=== PATIENT | male | born 1995 | race African-American/Black ===

== ENCOUNTER 2023-05-30 07:55 | Emergency (ER) | payer SELFPAY ==
--- OUTSIDE RECORDS SUMMARY | 2023-05-30 07:58 | XMS REPORT | Continuity of Care Document ---
Author Name Unknown Address [address] [facility] [facility] Address [address] [facility] 1 495 [place] [address] Care Team Providers Care Bid Manager Name Role Phone RAYSA BAILEY Attending Clinician Un available Devante Still Attending Clinician Unavailable Josue Ahumada Attending Clinician Unavailable Cleo Zaragoza Attending Clinician Unavailabl e Physician, No Primary or Family Admitting Clinic jeremy Unavailable Payers Payer Name Policy Type Policy Number Effective Date Expirati on Date Source Allergies, Adverse Reactions, Alerts Allergy Name Allergy Type Status Severity Reaction(s) Onset Date Inactive Date Treating Clinician Comments Source No Known Allergie s DA Active U 03-11 00:00: 00 [facility] Encounters Start Date/Time End Date/Time Encounter Type Admission Type Attending Clinicians Care Facility Care Department Encounter ID Source 2023-05-09 22:12:00 2023-05-10 00:02:00 Emergency E RAYSA BAILEY [facility] [id number] [facility] 2023-03-23 21:12:00 2023-03-23 22:30:00 Emergency EM Devante Still [id number] [facility] 2023-03-18 15:38:00 2023-03-18 19:52:00 Emergency EM Josue Ahumada [id number] [facility] 2023-03-11 17:12:00 2023-03-11 21:02:00 Emergency EM Cleo Zaragoza HCAWU WERGuy [id number] [facility] Results Test Description Test Time Test Comments Results Result Co mments Source [id number] 20:30:00* Test Item Value Reference Range Interpretation Comme nts AMYLASE (test code = YANELIS) 80 UNITS/L 30-110 N - CT ABD PELVIS W/[id number] 19:16:00 [facility] 1995 Sex: M Patient Name: SHIRIN JOAQUIN Unit No: [id number] EXAMS: CPT CODE: [id number] CT ABD PELVIS W/CONT 65629 EXAM: - CT ABD PELVIS W/CONT HISTORY: Abdominal pain. Diarrhea. TECHNIQUE: Axial tomograms through the abdomen and pelvis were obtained after intravenous contrast. Coronal and sagittal reformatted images are provided. This exam was performed according to our departmental dose-op timization program, which includes automated exposure control, adjustment of the mA and/or kV according to patient size and/or use of iterative reconstruction technique. COMPARISON: None available time of interpretation. FINDINGS: The visualized lung bases are clear. The gallbladder is contracted. The liver, spleen, pancreas, adrenal glands and kidneys demonstrate no significant abnormalities. Nohydronephrosis. There is an appendicolith in mid position of the appendix. The distal appendix sizeis at the upper limits of normal. No significant inflammation. No evidence of perforation. The bowel is not distended. Questionable mild thickening of the wall in the transverse colon could be due tounderdistention. There is no adenopathy or free fluid. The abdominal aorta is normal in size. There is no acute osseous abnormality. IMPRESSION: No definite acute abnormality and other findings as above. at 1916 Reported and signed by:Curly Moctezuma MD CC: Megan Pabon MD Technologist: Burton Pavon RT ARRT CTDI: DLP: Trnscrpt: 03/11/2023 (1915) [facility] NAME: SHIRIN JOAQUIN [id number] [address] PHYS: Megan Vázquez MD : 1995 AGE: 28 SEX: [place] [address] LOC: [facility] PHONE #: EXAM DATE: 03/11/2023 STATUS: REG ER FAX #: RAD #: D/C DT PAGE 1 Signed ReportPatient Name: SHIRIN JOAQUIN Unit No: [id number] EXAMS: CPT CODE: [id number] CT ABD PELVIS W/CONT 65954 (Continued) Orig Print D/T: S: 03/11/2023 (1918) [facility] NAME: SHIRIN JOAQUIN [id number] [address] PHYS: Megan Vázquez MD : 1995 AGE: 28 SEX: [place] [address] LOC: [facility] PHONE #: EXAM DATE: 03/11/2023 STATUS: REG ER FAX#: RAD #: D/C DT PAGE 2 Signed Report Notes Date/Time Note Provider Source 2023-03-23 21:49:00 [id number]:49:00 [facility] ([facility])EMERGENCY PROVIDER REPORTREPORT#:[id number] REPORT STATUS: SignedDATE:03/23/23 TIME: 2148 PATIENT: SHIRIN JOAQUIN UNIT #: [id number]#: [id number] ROOM/BED:AGE: 28 SEX: M PCP PHYS: No Primary or Family PhysicianSERVICE DT: AUTHOR: Devante Still DO LOCATION: [facility] * ALL edits or amendments must be made on the electronic/computer document * HPI-Abd Pain M Under 40 Free Text HPI NotesFree Text HPI Dkupb40-[id number]-esu male here for generalized abdominal pain and burning sensation. Patient has visited us third time this month. See previous encounters which wasJan as well as March 18. Patient has had 2 CTs and 2 rounds of labs at that time was discharged with Bentyl, Reglan, Pepcid, Zofran. Patient states vomiting and diarrhea have improved but burning sensation is persistent. GeneralInitial Greet Date/Time 03/23/232113 PresentationChief Complaint Abdominal pain Risk-Abd Pain M Under 40)( Torsion Risk factors reviewed Review of Systems ROS StatementsAll systems rev neg except as marked. Past Medical History - AdultStated Complaint EPIGASTRIC PAIN X 1 WEEKAllergiesCoded Allergies:No Known Allergies (03/11/23) Home MedicationsActive ScriptsDICYCLOMINE (BENTYL) 20 MG PO QID PRN abdominal cramping DICYCLOMINE (BENTYL) 20 MG PO QID PRN abdominal cramping #30 TABS Prov: 03/11/23ONDANSETRON ODT (ZOFRAN ODT) 4 MG PO Q6H PRN PRN NAUSEA/VOMITING ONDANSETRON ODT (ZOFRAN ODT) 4 MG PO Q6H PRN PRN NAUSEA/VOMITING #15 TABS Prov: 03/11/23METOCLOPRAMIDE (REGLAN) 10 MG PO QID PRN PRN NAUSEA/VOMITING METOCLOPRAMIDE (REGLAN) 10 MG PO QID PRN PRN NAUSEA/VOMITING #20 TABS Prov: 03/11/23FAMOTIDINE (PEPCID) 20 MG PO BID PRN GERD/ burning abdominal pain FAMOTIDINE (PEPCID) 20 MG PO BID PRN GERD/ burning abdominal pain #60 TABS Prov: 03/11/23OMEPRAZOLE ER 20 MG PO DAILY OMEPRAZOLE ER 20 MG PO DAILY #30 CAPS Prov: 03/18/23MAG HYDROX/AL HYDROX/SIMETH (MAG-AL PLUS 200-200-20 MG/5ML) 10 ML PO TID PRN PRNheartburn MAG HYDROX/AL HYDROX/SIMETH (MAG-AL PLUS 200-200-20 MG/5ML) 10 ML PO TID PRN PRN heartburn #150 ML Prov: 03/18/23 Physical Exam Vital SignsReview of Vital Signs Reviewed Focused PEGeneral/Const General/Const Awake, AlertResp/Chest Respiratory/Chest AtraumaticCardiovascular Cardiovascular Heart rate NLAbdomen/GI Abdomen/GI Atraumatic, Soft, Non-tenderMS Back Back Atraumatic, Inspection NL Interpretation Diagnostics Lab Results InterpretationResultslabs normal again. cbc, chem 8. Lab StatementLaboratory studies reviewed and considered in the medical decision-making. Re-Evaluation MDM Free Text MDM NotesFree Text MDM Notesabdominal pain with 2 CT this month. will recheck labs. will not reimage . counselled regarding GI f/u. )( Re-Evaluation/Progress #1)( Re-Eval Status Improved Abd Pain MDM Note M < 40The patient is resting comfortably and feels better, is alert and in no distress. The repeat examination is unremarkable and benign; in particular, there is no discomfort [facility]. The history, exam, diagnostic testing, and current condition do not suggest acute appendicitis, bowel obstruction, incarcerated hernia, testicular torsion, acute cholecystitis, bowelperforation, major gastrointestinal bleeding, severe diverticulitis, sepsis, or other significant pathology to warrant further testing, continued ED treatment, admission, or surgical evaluation at this point. The vital signs have been stable and are within normal limits at this time. The patient does not have uncontrollable pain, intractable vomiting, or other significant symptoms. The patient's condition is stable and appropriate for discharge. The patient will pursue further outpatient evaluation with the primary care physician or other designated or consulting physician as indicated in the discharge instructions. ED CourseMedication(s) OrderedMedication(s) Ordered:Electrolytic, Caloric, And Donna Sig/Will Start time Last Medication Dose Route Stop Time Status Admin Sodium Chloride 1,000 ML X1ED STA 03/23 2138 DC 03/23 IV 03/23 Eye, Ear, Nose And Throat (Een Sig/Will Start time Last Medication Dose Route Stop Time Status Admin Lidocaine HCl 15 ML X1ED STA 03/23 2137 DC 03/23 Al Hydrox/Mg Hydrox/ 30 ML PO 03/23 Simethicone Gastrointestinal Drugs Sig/Will Start time Last Medication Dose Route Stop Time Status Admin Pantoprazole 40 MG X1ED STA 03/23 2138 DC 03/23 IV 03/23 Differential Diagnosis)( Differential Diagnosis Acute abdominal pain, Gastritis, Gastroenteritis, Pancreatitis Patient Discharge Departure Vital Signs/ConditionVital SignsAll vital signs available at the time of this entry have been reviewed. Clinical ImpressionClinical ImpressionPrimary Impression: GastritisSecondary Impressions: Abdominal painTime of Impression 2231 Disposition DecisionDischarge )( Discharged to Home Yes )( Time 2231 )( Date 03/23/23 Discharge/Care PlanCounseled Regarding Diagnosis, Lab results, Prescriptions, Need for follow-up, When to return to ED(Auto) PrescriptionsCurrent Visit ScriptsPANTOPRAZOLE DR (PROTONIX) 40 MG PO DAILY PANTOPRAZOLE DR (PROTONIX) 40 MG PO DAILY #30 TABS SUCRALFATE (CARAFATE) 1 GM PO AC HS SUCRALFATE (CARAFATE) 1 GM PO AC HS #120 TABS take before meals and at bedtime ONDANSETRON ODT (ZOFRAN ODT) 4 MG PO Q6H PRN PRN NAUSEA/VOMITING ONDANSETRON ODT (ZOFRAN ODT) 4 MG PO Q6H PRN PRN NAUSEA/VOMITING #15 TABS ReferralsProvider Referral: Husam Oneal MD Address: [address] [place] [address] Provider Referral: Micheal Flores DO Address: [id number] [place] [address] Provider Referral: Rudy Mixno MD Address: [address] [facility] [address] [place] [address] Provider Referral: Jasmin Goodson MD Address: [address] [facility] [address] [place] [address] Discharge NoteI have spoken with the patient and/or caregivers. I have explained the patient'scondition, diagnoses and treatment plan based on the information available to meat this time. I have answered the patient's and/or caregiver's questions and addressed any concerns. The patient and/or caregivers have as good an understanding of the patient's diagnosis, condition and treatment plan as can beexpected at this point. The vital signs have been stable. The patient's condition is stable and appropriate for discharge from the emergency department. The patient will pursue further outpatient evaluation with the primary care physician or other designated or consulting physician as outlined in the discharge instructions. The patient and/or caregivers are agreeable to this planof care and follow-up instructions have been explained in detail. The patient and/or caregivers have received these instructions in written format and have expressed an understanding of the discharge instructions. The patient and/or caregivers are aware that any significant change in condition or worsening of symptoms should prompt an immediate return to this or the closest emergency department or a call to 911. at 2236RPT #:[id number] OF REPORTEDEmerbaptist health [facility] department [id number]:49:00Z.[id number] ilable for patient [id number]:36:39 [facility] 2023-03-18 17:57:00 [id number]:57:00 [facility] ([facility])EMERGENCY PROVIDER REPORTREPORT#:[id number] REPORT STATUS: SignedDATE:03/18/23 TIME: 1756 PATIENT: SHIRIN JOAQUIN UNIT #: [id number]#: [id number] ROOM/BED:AGE: 28 SEX: M PCP PHYS: No Primary or Family PhysicianSERVICE AUTHOR: Shirin Hunt MD LOCATION: [facility] * ALL edits or amendments must be made on the electronic/computer document * Shirin Hunt 03/18/231756:HPI-Abd Pain M Under 40 [facility]In[facility] Greet Date/Time 03/18/23 1552 PresentationChief Complaint Abdominal pain Free Text HPI NotesFree Text HPI NotesPatient 28-year-old male, no significant past medical history, exercises frequently, presents with upper abdominal plain. Patient was seen here approximately 1 week ago and had a CT scan that was negative, diagnosed with gastritis, and discharged home. On review of CT scan, patient had appendicolithat that time. Patient said he had nausea vomiting and diarrhea the week prior to the pain starting, so thought he had picked up some type of gastric bug. Patient says pain is not going away, it is getting worse, and wanted to get checked again. Risk-Abd Pain M Under 40)( Torsion No risk factors Review of Systems ROS StatementsAll systems rev neg except as marked. Focused Review of SystemsGIReports: Abdominal pain, Nausea. Denies: Bloody/tarry stool, Constipation, Hematemesis, Mucousy stool. Past Medical History - AdultStated Complaint ABDOMINAL PAINAllergiesCoded Allergies:No Known Allergies (03/11/23) Home MedicationsActive ScriptsDICYCLOMINE (BENTYL) 20 MG PO QID PRN abdominal cramping DICYCLOMINE (BENTYL) 20 MG PO QID PRN abdominal cramping #30 TABS Prov: 03/11/23ONDANSETRON ODT (ZOFRAN ODT) 4 MG PO Q6H PRN PRN NAUSEA/VOMITING ONDANSETRON ODT (ZOFRAN ODT) 4 MG PO Q6H PRN PRN NAUSEA/VOMITING #15 TABS Prov: 03/11/23METOCLOPRAMIDE (REGLAN) 10 MG PO QID PRN PRN NAUSEA/VOMITING METOCLOPRAMIDE (REGLAN) 10 MG PO QID PRN PRN NAUSEA/VOMITING #20 TABS Prov: 03/11/23FAMOTIDINE (PEPCID) 20 MG PO BID PRN GERD/ burning abdominal pain FAMOTIDINE (PEPCID) 20 MG PO BID PRN GERD/ burning abdominal pain #60 TABS Prov: 03/11/23 Calculated Suicide Risk (nurs) No riskPt reports no significant: Past medical history, Past surgical historySmoking status for patients 13 years old or older: Never Smoker Physical Exam Vital SignsReview of Vital Signs Reviewed Free Text PE NotesFree Text PE NotesGENERAL APPEARANCE: AxOx4, generally well-appearing 28-year-old maleHEENT: NC, AT. MMM. EOMI, clear conjunctiva, oropharynx clear.NECK: Supple without lymphadenopathy. No stiffness or restricted ROM.HEART: Normal rate and regular rhythm, normal S1/S1, no m/r/gLUNGS: CTAB, moving air well. No crackles or wheezes are heard.ABDOMEN: Soft, tender in bilateral upper quadrants and left quadrant, nondistended with good bowel sounds heard.BACK: No CVAT, no obvious deformity.EXTREMITIES: Without cyanosis, clubbing or edema.NEUROLOGICAL: Grossly nonfocal. Alert and oriented, moving all 4 extremities. CN not formally tested but appear grossly intact. Observed to ambulate with normal gait.Skin: Warm and dry without any rash. Interpretation Diagnostics Lab Results InterpretationConsiderations Reviewed prior records Re-Evaluation MDM Free Text MDM NotesFree Text MDM NotesPatient has trace leuks in his urine, CBC shows a white count of 7, hemoglobin 14, platelets 282. Patient has normal electrolytes with a sodium 139 potassium 3.8 and creatinine 1.1 with a BUN of 15. Glucose is 100. Patient has normal LFTs, he has slight elevation in his amylase at 105. )( Re-Evaluation/Progress #1Time of Re-Eval 1811)( Re-Eval Status Improved ED CourseMedication(s) OrderedMedication(s) Ordered:Autonomic Drugs Sig/Will Start time Last Medication Dose Route Stop Time Status Admin Dicyclomine HCl 20 MG X1ED STA 03/18 1604 DC 03/18 PO 03/18 1605 1751 Electrolytic, Caloric, And Donna Sig/Will Start time Last Medication Dose Route Stop Time Status Admin Sodium Chloride 1,000 ML X1ED ONE 03/18 1605 DC 03/18 IV 03/18 1705 1743 Eye, Ear, Nose And Throat (Een Sig/Will Start time Last Medication Dose Route Stop Time Status Admin Lidocaine HCl 15 ML X1ED STA 03/18 1604 DC 03/18 Al Hydrox/Mg Hydrox/ 30 ML PO 03/18 1605 1744 Simethicone Gastrointestinal Drugs Sig/Will Start time Last Medication Dose Route Stop Time Status Admin Famotidine 20 MG X1ED ONE 03/18 1605 DC 03/18 IV 03/18 1606 1745 Differential Diagnosis)( Differential Diagnosis Appendicitis, Constipation, Esophagitis, Gastritis, Gastroenteritis, Pancreatitis MDM-Treatment/EvaluationED CoursePatient with mild elevation of lipase, has prior appendicolith on my review of prior CT, given recurrent pain will CT, looks for changes in pancreas and also r/o atypical appnedicitis. CHEYENNE Sarmiento who assumes care Patient Discharge Departure Discharge/Care PlanReferralsProvider Referral: Cameron Hogan MD Address: [address] [facility] [facility] [address] [place] [address] Provider Referral: Lilly Lerma NP Address: [address] [facility] [place] [address] Provider Referral: Jasmin Goodson MD Address: [address] [place] [address] [address] [place] [address] Josue Ahumada 03/18/231939:Physical Exam Vital SignsVital SignsFirst Documented: Result Date Time Pulse Ox 95 03/18 1554 B/P 153/92 03/18 1554 B/P Mean 112 03/18 1554 Temp 36.3 03/18 1554 Pulse 60 03/18 1554 Resp 18 03/18 1554 Last Documented: Result Date Time Pulse Ox 98 03/18 1949 B/P 124/74 03/18 1949 B/P Mean 90 03/18 1949 Temp 37.1 03/18 1949 Pulse 54 03/18 1949 Resp 03/18 Interpretation Diagnostics Lab Results InterpretationResultsRecent Impressions:CAT SCAN - CT ABD PELVIS W/CONT 03/18 1839 Report Impression - Status: SIGNED Entered: 03/18/20231921 IMPRESSION: 1. The appendix is upper limit of normal in diameter. Anappendicolith is not redemonstrated. No periappendiceal fat strandingis detected to suggest acute appendicitis.2. No acute abdominal finding. LOCATION: [id number] By: Greg Pruitt M.D. Re-Evaluation [facility] )( Re-Evaluation/Progress #1Time of Re-Eval 1939)( Re-Eval Status ImprovedRe-Eval Abdomen Soft, Non-tender Patient Discharge Departure Vital Signs/ConditionVital SignsFirst Documented: Result Date Time Pulse Ox 95 03/18 1554 B/P 153/92 03/18 1554 B/P Mean 112 03/18 1554 Temp 36.3 03/18 1554 Pulse 60 03/18 1554 Resp 18 03/18 1554 Last Documented: Result Date Time Pulse Ox 98 03/18 1950 B/P 124/74 03/18 1950 B/P Mean 90 03/18 1949 Temp 37.1 03/18 1949 Pulse 54 03/18 1949 Resp 18 03/18 1949 All vital signs available at the time of this entry have been reviewed. Condition Stable, Improved Clinical ImpressionClinical ImpressionPrimary Impression: Acute abdominal painSecondary Impressions: Epigastric pain, Gastritis Disposition DecisionDischarge )( Discharged to Home Yes )( Time 194 )( Date 03/18/23 Discharge/Care PlanCounseled Regarding Diagnosis, Lab results, Imaging studies, Prescriptions, Needfor follow-up, When to return to ED(Auto) PrescriptionsCurrent Visit ScriptsOMEPRAZOLE ER 20 MG PO DAILY OMEPRAZOLE ER 20 MG PO DAILY #30 CAPS MAG HYDROX/AL HYDROX/SIMETH (MAG-AL PLUS 200-200-20 MG/5ML) 10 ML PO TID PRN PRNheartburn MAG HYDROX/AL HYDROX/SIMETH (MAG-AL PLUS 200-200-20 MG/5ML) 10 ML PO TID PRN PRN heartburn #150 ML Patient Instructions ED Epigastric Pain Uncertain Cause at 0336 at 0942RPT #:[id number] OF REPORTEDEmergency department vzljkh0829-08-05Y20:57:00Z.[id number] ilable for patient [id number]:36:21 [facility] 2023-03-11 17:30:00 [id number]:30:00 [facility] ([facility])EMERGENCY PROVIDER REPORTREPORT#:[id number] REPORT STATUS: SignedDATE:03/11/23 TIME: 1729 PATIENT: SHIRIN JOAQUIN UNIT #: [id number]#: [id number] ROOM/BED:AGE: 28 SEX: M PCP PHYS: No Primary or Family PhysicianSERVICE AUTHOR: Megan Pabon MD LOCATION: [facility] * ALL edits or amendments must be made on the electronic/computer document * Megan Pabon 03/11/23 1730:HPI-Abd Pain M Under 40 Free Text HPI NotesFree Text HPI NotesPatient is 28 years old healthy male presents complaining of abdominal pain associated with nausea/vomiting and diarrhea onset 6 days. Reports several episodes of diarrhea and vomiting in the first 2 days, felt better however symptoms have not resolved, reports 3 episodes of watery stools and 2 emesis since yesterday, denies fever. GeneralInitial Greet Date/Time 03/11/23 1720 PresentationChief Complaint Abdominal pain, Vomiting mild, Diarrhea Risk-Abd Pain M Under 40)( Torsion Risk factors reviewed Review of Systems ROS StatementsAll systems rev neg except as marked. Basic Review of SystemsBasic ROS EYES: No redness, ENT: No sore throat, HEM: No bleeding/bruising, SKIN: No rash, NEURO: No change MS, NEURO: No focal deficit, PSYCH: NL thought content Focused Review of SystemsConstitutionalReports: Fatigue. Denies: Chills, Fever. RespiratoryDenies: Cough, non-productive, Shortness of breath, Wheezing. CardiovascularDenies: Chest pain, Syncope. GIReports: Abdominal pain, Anorexia, Diarrhea, Nausea, Vomiting. MaleDenies: Dysuria, Flank pain, Urinary urgency. MusculoskeletalReports: Myalgia. Past Medical History - AdultStated Complaint ABDOMINAL PAIN,DIARRHEAAllergiesCoded Allergies:No Known Allergies (03/11/23) Physical Exam Vital SignsVital SignsFirst Documented: Result Date Time Pulse Ox 98 03/11 171 B/P 119/84 03/11 1714 B/P Mean 95 03/11 1714 O2 Delivery Room air 03/11 1714 Temp 36.7 03/11 1714 Pulse 74 03/11 171 Resp 18 03/11 1714 Last Documented: Result Date Time Pulse Ox 98 03/11 2101 B/P 111/67 03/11 2101 B/P Mean 81 03/11 2101 Pulse 62 03/11 2101 Resp 17 03/11 2101 O2 Delivery Room air 03/11 1714 Temp 36.7 03/11 1714 Review of Vital Signs Reviewed, Vital signs normal Basic Physical ExamBasic PE HEAD: Atraumatic/NC, EYES: PERRL, conj clear, ENT: Membranes moist, NECK: Supple, EXT: No gross abnormality, SKIN: No rashes, warm/dry, NEURO: alert oriented, NEURO: gross movement NL, PSYCH: NL thought content Focused PEGeneral/Const General/Const Awake, Alert, No acute distressMS Head Head Atraumatic, NormocephalicEyes Eyes Atraumatic, PERRL, No scleral icterus, Conjunctiva NLEars/Nose/Throat Ears/Nose/Throat Atraumatic, Airway patent, Mucous membranes moist, Pharynx NLResp/Chest Respiratory/Chest Atraumatic, Breath sounds NL, Breath sounds = bilatCardiovascular Cardiovascular Heart rate NL, Regular rhythm, Heart sounds NLAbdomen/GI Abdomen/GI Atraumatic, Soft, No guarding, No rebound Text/Dict NotesGeneralized abdominal tenderness, no guardingMS Back Back Atraumatic, Inspection NL, Full range of motionSkin Skin Atraumatic, Color NL, No rashNeurologic Neurologic Oriented X3, Speech NL, No motor deficits, No sensory deficits, CNII - XII intact, Reflexes equal bilat Interpretation Diagnostics Lab Results Interpretation Lab StatementLaboratory studies reviewed and considered in the medical decision-making. Re-Evaluation MDM Free Text MDM NotesAdditional Text28 years old male presents with persistent abdominal pain nausea/vomiting and diarrhea. generalized abdominal tenderness on exam. Will check labs, give IV fluids, and obtain CT abdomen pelvis for acute intra-abdominal pathology. Differential Diagnosis)( Differential Diagnosis Acute abdominal pain, Cholangitis, Cholecystitis, Cholelithiasis, Gastritis, Gastroenteritis, Hepatitis, Inflam bowel disease, Urinary tract infection, Urolithiasis Patient Discharge Departure Vital Signs/ConditionVital SignsFirst Documented: Result Date Time Pulse Ox 98 03/11 1714 B/P 119/84 03/11 1714 B/P Mean 95 03/11 1714 O2 Delivery Room air 03/11 1714 Temp 36.7 03/11 1714 Pulse 74 03/11 1714 Resp 18 03/11 1714 Last Documented: Result Date Time Pulse Ox 98 03/11 2101 B/P 111/67 03/11 2101 B/P Mean 81 03/11 2101 Pulse 62 03/11 2101 Resp 17 03/11 2101 O2 Delivery Room air 03/11 1714 Temp 36.7 03/11 1714 All vital signs available at the time of this entry have been reviewed. Pt/Provider Handoff Handoff NoteThis patient's care has been transferred to and accepted by [Dr Juarez at 1800]. We discussed: the patient's chief complaint; labs and imaging that have been completed and those that are still pending; procedures that have been completed and those remaining to be done; any treatment provided and the patient's response to treatment; any significant change in condition; input from consultants if any; the treatment plan prior to the transfer of care. The accepting physician will follow up on all pending labs and imaging and make any necessary changes to the current impression and/or treatment plan. The acceptingphysician is now responsible for the patient's care and final disposition. Cleo Zaragoza 03/11/231923:Past Medical History - AdultHome MedicationsActive ScriptsOMEPRAZOLE ER 20 MG PO DAILY OMEPRAZOLE ER 20 MG PO DAILY #30 CAPS Prov: 03/18/23MAG HYDROX/AL HYDROX/SIMETH (MAG-AL PLUS 200-200-20 MG/5ML) 10 ML PO TID PRN PRNheartburn MAG HYDROX/AL HYDROX/SIMETH (MAG-AL PLUS 200-200-20 MG/5ML) 10 ML PO TID PRN PRN heartburn #150 ML Prov: 03/18/23 Interpretation Diagnostics Lab Results InterpretationResultsLaboratory Tests: 03/11 1812 Chemistry Total Bilirubin (0.2 - 1.3 MG/DL) 0.9 Direct Bilirubin (0.0 - 0.3 MG/DL) 0.0 AST (17 - 59 UNITS/L) 32 ALT (0 - 49 UNITS/L) 39 Total Alk Phosphatase (38 - 126 UNITS/L) 79 Total Protein (6.2 - 7.6 G/DL) 7.6 Albumin (3.5 - 5.0 G/DL) 4.4 Amylase (30 - 110 UNITS/L) 80 Recent Impressions:CAT SCAN - CT ABD PELVIS W/CONT 03/11 1839 Report Impression - Status: SIGNED Entered: 03/11/20231918 IMPRESSION: No definite acute abnormality and other findings as above.Impression By: [email or web address] - Curly Moctezuma MD Re-Evaluation MDM )( Re-Evaluation/Progress #1Time of Re-Eval 2040)( Re-Eval Status Improved, Resolved, - passed po - ready to go ED CourseMedication(s) OrderedMedication(s) Ordered:Autonomic Drugs Sig/Will Start time Last Medication Dose Route Stop Time Status Admin Dicyclomine HCl 20 MG ONCE ONE 03/11 1944 DC 03/11 PO 03/11 Central Nervous System Agents Sig/Will Start time Last Medication Dose Route Stop Time Status Admin Ketorolac 15 MG X1ED STA 03/11 1809 DC 03/11 Tromethamine IV 03/11 1810 1823 Electrolytic, Caloric, And Donna Sig/Will Start time Last Medication Dose Route Stop Time Status Admin Sodium Chloride 1,000 ML X1ED ONE 03/11 1735 DC 03/11 IV 03/11 1835 1804 Eye, Ear, Nose And Throat (Een Sig/Will Start time Last Medication Dose Route Stop Time Status Admin Lidocaine HCl 15 ML X1ED STA 03/11 194 DC 03/11 Al Hydrox/Mg Hydrox/ 30 ML PO 03/11 1943 2015 Simethicone Gastrointestinal Drugs Sig/Will Start time Last Medication Dose Route Stop Time Status Admin Famotidine 40 MG X1ED STA 03/11 194 DC 03/11 IV 03/11 [facility]-Treatment/EvaluationED Nhilfn0126- assumed care 1923- all results back- updated- will po challenge Patient Discharge Departure Clinical ImpressionClinical ImpressionPrimary Impression: Acute gastroenteritisSecondary Impressions: Abdominal cramping, Acute diarrhea, Acute generalized abdominal pain, Acute vomiting, Moderate dehydration Disposition DecisionDischarge )( Discharged to Home Yes )( Time 2041 )( Date 03/11/23 Discharge/Care Plan(Auto) PrescriptionsCurrent Visit ScriptsDICYCLOMINE (BENTYL) 20 MG PO QID PRN abdominal cramping DICYCLOMINE (BENTYL) 20 MG PO QID PRN abdominal cramping #30 TABS ONDANSETRON ODT (ZOFRAN ODT) 4 MG PO Q6H PRN PRN NAUSEA/VOMITING ONDANSETRON ODT (ZOFRAN ODT) 4 MG PO Q6H PRN PRN NAUSEA/VOMITING #15 TABS METOCLOPRAMIDE (REGLAN) 10 MG PO QID PRN PRN NAUSEA/VOMITING METOCLOPRAMIDE (REGLAN) 10 MG PO QID PRN PRN NAUSEA/VOMITING #20 TABS FAMOTIDINE (PEPCID) 20 MG PO BID PRN GERD/ burning abdominal pain FAMOTIDINE (PEPCID) 20 MG PO BID PRN GERD/ burning abdominal pain #60 TABS Patient Instructions ED Abdominal Pain Adult, ED Gastroenteritis, Noninfectious,Vomit Diarrhea Nonspecific AdultAdditional InstructionsEat a bland diet until your symptoms resolve. Use the prescribed medications asneeded for symptom control. Make sure that you are drinking plenty of fluids toremain hydrated.ReferralsProvider Referral: Husam nOeal MD Address: [address] [facility] [address] [place] [address] Provider Referral: Micheal Flores DO Address: [address] [place] [address] [address] [place] [address] Provider Referral: Amber Arboleda AGACNP Address: [address] [facility] [address] [place] [address] Provider Referral: Rudy Mixon MD Address: [address] [facility] [address] [place] [address] at 2221 at 1709RPT #:[id number] OF REPORTEDEmergency department tojsnb2281-61-84C73:30:00Z.[id number] ilable for patient ztumVKDFBKRDJGLJSM2513-40-56U53:21:44 [facility]
[2023-05-30] MEDS ORDERED: predniSONE 20 MG TAB ONE (08:45)
[2023-05-30] MEDS ORDERED: ALBUTEROL 2.5 MG/3 ML NEB SOL ONE ×2 (08:45→10:10)
[2023-05-30] MEDS ORDERED: IPRATROPIUM BROM 0.5MG/2.5ML ONE ×2 (08:45→10:10)
--- NOTE | 2023-05-30 09:22 | RAD REPORT ---
EXAM DESCRIPTION: RAD - Chest Single View - 05/30/2023 8:54 am CLINICAL HISTORY: COUGH Chest pain. COMPARISON: No comparisons FINDINGS: Portable technique limits examination quality. The lungs are grossly clear. The heart is normal in size. No displaced fractures. IMPRESSION: No acute intrathoracic process suspected.
--- NOTE | 2023-05-30 09:48 | RAD REPORT ---
EXAM DESCRIPTION: US - Scrotum Testicles - 05/30/2023 9:21 am CLINICAL HISTORY: PAIN Pain and swelling COMPARISON: <Comparisons> FINDINGS: The right testicle 4.5 x 2.3 x 3.0 cm. No intratesticular masses or evidence of testicular torsion. The left testicle 4.4 x 2.6 x 3.0 cm. No intratesticular masses or evidence of testicular torsion. Both epididymides are normal in size and appearance. No pathologic fluid collections. IMPRESSION: Unremarkable study.
--- NOTE | 2023-05-30 11:03 | ER ---
Nurse's Notes [facility] Name: Vijay Mcgregor Age: 28 yrs Sex: Male : 1995 Arrival Date: 05/30/2023 Time: 07:55 Bed 15 Private MD: Diagnosis: Unspecified asthma, uncomplicated;Testicular pain Presentation: 05/29 08:28 Chief complaint: Patient states: h/a, cough, congestion, fever chills, had flu and URI iw infection last week, also tripped over a hose last night and has right groin pain. 08:28 Acuity: SHARIF 4 iw 08:29 Coronavirus screen: Client presents with at least one sign or symptom that may indicate iw coronavirus-19. Ebola Screen: Patient negative for fever greater than or equal to 101.5 degrees Fahrenheit, and additional compatible Ebola Virus Disease symptoms Patient denies exposure to infectious person. Patient denies travel to an Ebola-affected area in the 21 days before illness onset. No symptoms or risks identified at this time. Initial Sepsis Screen: Does the patient meet any 2 criteria? No. Patient's initial sepsis screen is negative. Does the patient have a suspected source of infection? No. Patient's initial sepsis screen is negative. Risk Assessment: Do you want to hurt yourself or someone else? Patient reports no desire to harm self or others. Onset of symptoms was May 28, 2023. 08:29 Method Of Arrival: Ambulatory iw Historical: - Allergies: 08:30 No Known Allergies; iw - Home Meds: 08:30 None [Active]; iw - PMHx: 08:30 None; iw - PSHx: 08:30 None; iw - Family history:: not pertinent. Screenin:03 [facility] ED Fall Risk Assessment (Adult) Score/Fall Risk Level 0 - 2 = Low Risk. Abuse iw screen: Denies threats or abuse. Denies injuries from another. Nutritional screening: No deficits noted. Tuberculosis screening: No symptoms or risk factors identified. Assessment: 08:28 General: Appears in no apparent distress. Behavior is calm, cooperative. Pain: iw Complains of pain in right femoral area. Neuro: Level of Consciousness is awake, alert, obeys commands, Oriented to person, place, time, situation, Moves all extremities. Full function. Cardiovascular: Patient's skin is warm and dry. Respiratory: Respiratory effort is even, unlabored, Respiratory pattern is regular, symmetrical. GI: Abdomen is flat, non-distended. Derm: Skin is intact, is healthy with good turgor. Musculoskeletal: Range of motion:. Vital Signs: 08:30 BP 112 / 74; Pulse 81; Resp 16; Temp 98; Pulse Ox 100% ; Weight 83.91 kg; Height 5 ft. iw 7 in. ; Pain 8/10; 08:30 Body Mass Index 28.97 (83.91 kg, 170.18 cm) iw 08:30 Pain Scale: Adult iw ED Course: 07:59 Patient arrived in ED. mr 08:26 Husam Naqvi MD is Attending Physician. rt 08:28 Angie Em RN is Primary Nurse. iw 08:29 Triage completed. iw 08:30 Arm band placed on. iw 08:56 Chest Single View XRAY In Process Unspecified. EDMS 09:03 No provider procedures requiring assistance completed. iw 09:22 Scrotum Testicles US In Process Unspecified. EDMS Administered Medications: 09:33 Drug: predniSONE PO 40 mg PO once Route: PO; iw 09:33 Drug: DuoNeb Nebulize (3:1) (2.5 mg - 0.5 mg) 3 ml Nebulizer once Route: Nebulizer; iw 10:16 Drug: DuoNeb Nebulize (3:1) (2.5 mg - 0.5 mg) 3 ml Nebulizer once Route: Nebulizer; iw Medication: 09:03 VIS not applicable for this client. iw Outcome: 11:03 Discharge ordered by . rt 11:25 Patient left the ED. iw Signatures: Dispatcher [employer] EDMS Rachael Barney, Reg Reg Angie Em, RN RN iw Husam Naqvi MD MD rt Corrections: (The following items were deleted from the chart) 09:33 08:30 BP 112 / 74; Pulse 81bpm; Resp 16bpm; Pulse Ox 100%; 83.91 kg; Height 5 ft. 7 iw in.; BMI: 28.9; Pain 8/10, Adult; iw
--- NOTE | 2023-05-30 11:04 | EDPHYS ---
Physician Documentation [facility] Name: Vijay Mcgregor Age: 28 yrs Sex: Male : 1995 Arrival Date: 05/30/2023 Time: 07:55 Bed 15 Private MD: ED Physician Husam Naqvi HPI: 05/29 08:46 This 28 yrs old Black Male presents to ER via Ambulatory with complaints of Groin rt Injury, Congestion, Shortness Of Breath. 08:46 Patient presents to the ED with right testicular pain. It started yesterday, was rt initially sharp, more intense, slowly improved throughout the day, now only has a dull pain. Denies any swelling to the area, abnormal lie, penile discharge. He also reports having shortness of breath, wheezing consistent with prior episodes of asthma. Denies other acute complaints at this time, symptoms are moderate in severity, no other aggravating or alleviating factors.. Historical: - Allergies: 08:30 No Known Allergies; iw - Home Meds: 08:30 None [Active]; iw - PMHx: 08:30 None; iw - PSHx: 08:30 None; iw - Family history:: not pertinent. ROS: 08:46 Constitutional: Negative for fever, chills, and weight loss, Cardiovascular: Negative rt for chest pain, palpitations, and edema, Abdomen/GI: Negative for abdominal pain, nausea, vomiting, diarrhea, and constipation, MS/Extremity: Negative for injury and deformity, Skin: Negative for injury, rash, and discoloration, Neuro: Negative for headache, weakness, numbness, tingling, and seizure, 08:46 Cardiovascular: Positive for 08:46 Respiratory: Positive for cough, shortness of breath, wheezing, Negative for 08:46 : Positive for testicular pain Negative for burning with urination, Exam: 08:46 Constitutional: This is a well developed, well nourished patient who is awake, alert, rt and in no acute distress. Head/Face: Normocephalic, atraumatic. Chest/axilla: Normal chest wall appearance and motion. Nontender with no deformity. No lesions are appreciated. Cardiovascular: Regular rate and rhythm with a normal S1 and S2. No gallops, murmurs, or rubs. Normal PMI, no JVD. No pulse deficits. Abdomen/GI: Soft, non-tender, with normal bowel sounds. No distension or tympany. No guarding or rebound. No evidence of tenderness throughout. Skin: Warm, dry with normal turgor. Normal color with no rashes, no lesions, and no evidence of cellulitis. MS/ Extremity: Pulses equal, no cyanosis. Neurovascular intact. Full, normal range of motion. Neuro: Awake and alert, GCS 15, oriented to person, place, time, and situation. Cranial nerves II-XII grossly intact. Motor strength 5/5 in all extremities. Sensory grossly intact. Cerebellar exam normal. Normal gait. 08:46 Respiratory: Faint wheezes heard on all lung huitron, no respiratory distress, 08:46 : No penile discharge, no testicular tenderness, palpable hernia, no masses, swelling, testicles normal lie, Vital Signs: 08:30 BP 112 / 74; Pulse 81; Resp 16; Temp 98; Pulse Ox 100% ; Weight 83.91 kg; Height 5 ft. iw 7 in. ; Pain 8/10; 08:30 Body Mass Index 28.97 (83.91 kg, 170.18 cm) iw 08:30 Pain Scale: Adult iw MDM: 08:27 Patient medically screened. rt 12:11 Differential diagnosis: Testicular torsion, epididymitis, asthma exacerbation, rt pneumonia. Data reviewed: vital signs, nurses notes, lab test result(s), EKG, radiologic studies. Independent interpretation of the following test(s) in the Emergency Department X-Ray: My interpretation is No pneumonia seen on interpretation of x-ray images. Care significantly affected by the following chronic conditions: Asthma. Counseling: I had a detailed discussion with the patient and/or guardian regarding the historical points, exam findings, and any diagnostic results supporting the discharge/admit diagnosis, lab results, radiology results, the need for outpatient follow up, to return to the emergency department if symptoms worsen or persist or if there are any questions or concerns that arise at home. Response to treatment: the patient's symptoms have markedly improved after treatment. 05/29 08:36 Order name: Scrotum Testicles US; Complete Time: 09:55 rt 05/29 08:36 Order name: Chest Single View XRAY; Complete Time: 09:55 rt Administered Medications: :33 Drug: predniSONE PO 40 mg PO once Route: PO; iw 09:33 Drug: DuoNeb Nebulize (3:1) (2.5 mg - 0.5 mg) 3 ml Nebulizer once Route: Nebulizer; iw 10:16 Drug: DuoNeb Nebulize (3:1) (2.5 mg - 0.5 mg) 3 ml Nebulizer once Route: Nebulizer; Disposition Summary: 05/30/23 11:03 Discharge Ordered Notes: Location: Home rt Problem: new rt Symptoms: have improved rt Condition: Stable rt Diagnosis - Unspecified asthma, uncomplicated rt - Testicular pain rt Followup: rt - With: Private Physician - When: 2 - 3 days - Reason: Discharge Instructions: - Discharge Summary Sheet em1 - Asthma, Adult rt Forms: - Work release form em1 - Medication Reconciliation Form rt - Thank You Letter rt - Antibiotic Education rt - Prescription Opioid Use rt - Patient Portal Instructions rt - Leadership Thank You Letter rt Prescriptions: - albuterol sulfate 90 mcg/actuation Inhalation HFA Aerosol Inhaler - inhale 3 puff INHALATION route every 3 to 4 hours as needed for bronchospasm;; rt 2 Each; Refills: 0, Product Selection Permitted - Albuterol Sulfate 2.5 mg /3 mL (0.083 %) Inhalation Solution for Nebulization - inhale 1 unit NEBULIZATION route every 8 hours As needed; 30 unit; Refills: 0, rt Product Selection Permitted - Prednisone 20 mg Oral Tablet - take 2 tablets ORAL route once daily for 5 days; 10 tablet; Refills: 0, Product rt Selection Permitted Signatures: Dispatcher [employer] Angie Walden RN RN iw Husam Naqvi MD MD rt
[2023-05-30 11:58] VITALS: BP 112/74; TEMP 98; O2SAT 100
== END 2023-05-30 11:25 | disposition home or self-care (01) ==
LOC: ER 07:55
DX: J45.909 Unspecified asthma, uncomplicated (principal); N50.811 Right testicular pain
CPT/HCPCS: 71045; 76870; 94640; 99284; J7512; J7613; J7644

== ENCOUNTER 2023-06-18 17:23 | Emergency (ER) | payer SELFPAY ==
--- OUTSIDE RECORDS SUMMARY | 2023-06-18 17:26 | XMS REPORT | Continuity of Care Document ---
Author Name Unknown Address [address] [facility] [address] [place], [place] [address] [place] [address] thconnect Address [address] [place] [address]. [address] [place] [address] Care Team Providers Care [employer] Wiring Technician Name Role Phone Devante Still Attending Clinician Unavailable Josue Ahumada [...] s DA Active U 03-11 00:00: 00 [facility] Encounters Start Date/Time End Date/Time Encounter Type Admission Type Attending Clinicians Care Facility Care Department Encounter ID Source 2023-03-23 21:12:00 2023-03-23 22:30:00 Emergency [facility] [id number] [facility] 2023-03-18 15:38:00 2023-03-18 19:52:00 Emergency EM Josue Ahumada [id number] [facility] 2023-03-11 17:12:00 2023-03-11 21:02:00 Emergency EM lCeo Zaragoza [id number] [facility] Results Test Description Test Time Test Comments Results Result Co mments Source [id number] 20:30:00* Test Item Value Reference Range Interpretation Comme nts AMYLASE (test code = YANELIS) 80 UNITS/L 30-110 N - CT ABD PELVIS W/[id number] 19:16:00 [facility] : 1995 Sex: M Patient Name: SHIRIN JOAQUIN Unit No: [id number] EXAMS: CPT CODE: [id number] CT ABD PELVIS W/CONT 40272 EXAM: - CT ABD PELVIS W/CONT HISTORY: [...] The abdominal aorta is normal in size. Thereis no acute osseous abnormality. IMPRESSION: No definite acute abnormality and other findings as above. at 1916 Reported and signed by: Curly Moctezuma MD CC: Megan Pabon MD Technologist: Burton Pavon RT ARRT CTDI: DLP: Trnscrpt: 03/11/2023 (1915) [email or web address] [place] [facility] NAME: SHIRIN JOAQUIN [id number] PHYS: Megan Vázquez MD : 1995 AGE: 28 SEX: [place] [address] LOC: [facility] PHONE #: EXAM DATE: 03/11/2023 STATUS: REG ER FAX #: RAD #: D/C DT PAGE 1 Signed Report Patient Name: SHIRIN JOAQUIN Unit No: [id number] EXAMS: CPT CODE: [id number] CT ABD PELVIS W/CONT 99123 (Continued) Orig Print D/T: S: 03/11/2023 (1918) YOSSI COFFEY FSED NAME: SHIRIN JOAQUIN [address]D PHYS: Megan Vázquez MD : 1995 AGE: 28 [place]EX: [place] [address] LOC: [facility] PHONE #: EXAM DATE: 03/11/2023 STATUS: REG ER FAX #: RAD #: D/C DT PAGE 2 Signed Report Notes Date/Time Note Provider Source 2023-03-23 21:49:00 [id number] TvRPuQAWP+tlvXRsc98+SS1DkY66126-31-62S37:49:00 [facility] ([facility])EMERGENCY PROVIDER REPORTREPORT#:[id number] REPORT STATUS: SignedDATE:03/23/23 TIME: 2148 PATIENT: SHIRIN JOAQUIN UNIT #: [id number]#: [id number] ROOM/BED:AGE: 28 SEX: M PCP PHYS: No Primary or Family PhysicianSERVICE DT: AUTHOR: Devante Still DO LOCATION: [facility] * ALL edits or amendments must be made on the electronic/computer document * HPI-Abd Pain M Under 40 Free Text HPI NotesFree Text HPI Gvkyd80-tuiy-sqq male here for generalized abdominal pain and [...] in particular, there is no discomfort at McBurney's point. The history, exam, diagnostic testing, and [...] TABS ReferralsProvider Referral: Husam Oneal MD Address: [address] [place], [place] [address] [place] [address] Provider Referral: Micheal Flores Address: [address] [place] [address] [address] [place] [address] Provider Referral: Rudy Mixon MD Address: [address] [place] [address] [address] [place] [address] Provider Referral: Jasmin Goodson MD Address: [address] [place] [address] [address] [place] [address] Discharge NoteI have spoken with the patient [...] or a call to 911. at 2236RPT #:[id number] OF REPORTEDEmergency department avmngw3832-07-91A24:49:00Z.[id number] ilable for patient wtaxWPRRFGGIQAJTWQ7368-04-49M56:36:39 [facility] 2023-03-18 17:57:00 [id number] rZGiaLv9ABFk+4owh/xfFpkPDp63417-04-33C22:57:00 [facility] ([facility])EMERGENCY PROVIDER REPORTREPORT#:[id number] REPORT STATUS: SignedDATE:03/18/23 TIME: 1756 PATIENT: EMANISHIRIN UNIT #: [id number]#: [id number] ROOM/BED:AGE: 28 SEX: M PCP PHYS: No Primary or Family PhysicianSERVICE AUTHOR: Shirin Hunt MD LOCATION: [facility] * ALL edits or amendments must be made on the electronic/computer document * Shirin Hunt 03/18/23 175:HPI-Abd Pain M Under 40 [facility] Date/Time 03/18/23 1552 PresentationChief Complaint Abdominal pain [...] Discharge/Care PlanReferralsProvider Referral: Cameron Hogan MD Address: [address] [place] [address] [address] [place] [address] Provider Referral: Lilly Lerma NP Address: [address] [place] [address], [address] [place] [address] Provider Referral: Jasmin Goodson MD Address: [address] [place] [address] [address] [place] [address] Josue Ahumada 03/18/231939:Physical Exam Vital SignsVital SignsFirst Documented: Result Date Time Pulse Ox 95 03/18 1554 B/P 153/92 / 1554 B/P Mean 112 03/18 1554 Temp [...] acute appendicitis.2. No acute abdominal finding. LOCATION: E22Vrarltyaul By: Greg Pruitt M.D. Re-Evaluation [facility] )( Re-Evaluation/Progress #1Time of Re-Eval 1939)( Re-Eval [...] 1949 Pulse 54 03/18 1949 Resp 03/18 All vital signs available at the time of this entry have been reviewed. Condition Stable, Improved Clinical ImpressionClinical ImpressionPrimary Impression: Acute abdominal painSecondary Impressions: Epigastric pain, Gastritis Disposition DecisionDischarge )( Discharged to Home Yes )( Time 1940 )( Date 03/18/23 Discharge/Care PlanCounseled Regarding Diagnosis, [...] Pain Uncertain Cause at 0336 at 0942RPT #:[id number] OF REPORTEDEmerjohnson regional medical center department zllhfh2078-61-22E28:57:00Z.[id number] ilable for patient gkshXPENIBTZXMYPNL5359-33-30R21:36:21 [facility] 2023-03-11 17:30:00 [id number]/[id number] 9g4CZuTZ0GpmXNzQo5G82ZlEsb87692-21-24J49:30:00 [facility] ([facility])EMERGENCY PROVIDER REPORTREPORT#:[id number] REPORT STATUS: SignedDATE:03/11/23 TIME: 1729 PATIENT: SHIRIN JOAQUIN UNIT #: [id number]#: [id number] ROOM/BED:AGE: 28 SEX: M PCP PHYS: No Primary or Family PhysicianSERVICE AUTHOR: Megan Pabon MD [facility] * ALL edits or amendments must be [...] Result Date Time Pulse Ox 98 03/11 1715 B/P 119/84 03/11 1714 B/P Mean 95 03/11 1714 O2 Delivery Room air 03/11 1714 Temp 36.7 03/11 1714 Pulse 74 03/11 171 Resp 18 03/11 1714 Last Documented: Result Date Time Pulse Ox 98 03/11 210 B/P 111/67 03/11 2101 B/P Mean 81 [...] SCAN - CT ABD PELVIS W/CONT 03/11 184 Report Impression - Status: SIGNED Entered: 03/11/20231918 IMPRESSION: No definite acute abnormality and other findings as above.Impression By: [email or web address] - Curly Moctezuma MD Re-Evaluation [facility] )( Re-Evaluation/Progress #1Time of Re-Eval 2040)( Re-Eval [...] Admin Ketorolac 15 MG X1ED STA 03/11 180 DC 03/11 Tromethamine IV 03/11 1810 1823 [...] Admin Famotidine 40 MG X1ED STA 03/11 1941 DC 03/11 IV 03/11 [facility]-Treatment/EvaluationED Crayqv4080- assumed care 1923- all results back- updated- [...] plenty of fluids toremain hydrated.ReferralsProvider Referral: Husam Oneal MD Address: [address] [facility] [address] [place] [address] Provider Referral: Micheal Flores DO Address: [address] [facility] [address] [place] [address] Provider Referral: Amber Arboleda [facility] Address: [address] [facility] [address] [place] [address] Provider Referral: Rudy Mixon MD Address: [address] [facility] [address] [place] [id number] at 2221 at 2219RPT #:[id number] OF REPORTEDEmerjohnson regional medical center department hcxktp7286-50-97C15:30:00Z.[id number] ilable for patient kdlyKEIAQFBBNMWDIH0170-12-28K53:21:44 [facility]
[2023-06-18 18:19] LABS: Absolute Eosinophils 0.2 K/uL (0-0.5); Absolute Lymphocytes (CBC) 1.7 K/uL (0.7-4.9); Absolute Monocytes 0.7 K/uL (0.1-1.3); Absolute Neutrophil 3.4 K/uL (1.8-8.0); Basophils % 0.8 % (0-1.3); Eosinophils % 2.9 % (0-4.4); Hematocrit 38.6 % (39.6-49.0); Hemoglobin 13.3 g/dL (13.6-17.9); Lymphocytes % 27.9 % (15.3-44.8); MCH 31.3 pg (27.0-35.0); MCHC 34.5 g/dL (32.0-36.0); MCV 90.8 fL (80-100); MPV 6.4 fL (7.6-11.3); Monocytes % 11.9 % (3.3-12.3); Neutrophils % 56.5 % (41.7-73.7); Nucleated Red Blood Cells % 0.2 % (0-0); Platelets 299 thou/uL (152-406); RBC Red Blood Cell Count 4.25 M/uL (4.33-5.43); Red Cell Distribution Width 13.8 % (12.1-15.2)
[2023-06-18 18:30] LABS: Albumin 3.6 g/dL (3.4-5.0); Albumin/Globulin Ratio 1.1 (1.1-1.8); Anion Gap 8.7 mEq/L (5.0-15.0); Bilirubin Total 0.8 mg/dL (0.2-1.0); Globulin 3.4 g/dL (2.3-3.5); Potassium 3.7 mEq/L (3.5-5.1)
--- NOTE | 2023-06-18 19:16 | ER ---
Nurse's Notes [facility] Name: Vijay Mcgregor Age: 28 yrs Sex: Male : 1995 Arrival Date: 06/18/2023 Time: 17:23 Bed 19 Private MD: Diagnosis: Concern for Medical Illness Presentation: 06/17 17:35 Chief complaint: Patient states: headache and eye swelling since Saturday. Coronavirus as6 screen: At this time, the client does not indicate any symptoms associated with coronavirus-19. Ebola Screen: No symptoms or risks identified at this time. Initial Sepsis Screen: Does the patient meet any 2 criteria? No. Patient's initial sepsis screen is negative. Does the patient have a suspected source of infection? No. Patient's initial sepsis screen is negative. Risk Assessment: Do you want to hurt yourself or someone else? Patient reports no desire to harm self or others. Onset of symptoms was June 16, 2023. 17:35 Acuity: SHARIF 3 as6 17:35 Method Of Arrival: Ambulatory as6 Historical: - Allergies: 17:35 No Known Allergies; as6 - PMHx: 17:35 None; as6 - PSHx: 17:35 thumb; as6 - Immunization history:: Adult Immunizations up to date. - Infectious Disease History:: Denies. - Social history:: Smoking status: Patient denies any tobacco usage or history of. Screenin:49 [facility] ED Fall Risk Assessment (Adult) History of falling in the last 3 months, mb9 including since admission No falls in past 3 months (0 pts) Confusion or Disorientation No (0 pts) Intoxicated or Sedated No (0 pts) Impaired Gait No (0 pts) Mobility Assist Device Used No (0 pt) Altered Elimination No (0 pt) Score/Fall Risk Level 0 - 2 = Low Risk Oriented to surroundings, Maintained a safe environment, Educated pt \T\ family on fall prevention, incl call for assistance when getting out of bed. Abuse screen: Denies threats or abuse. Nutritional screening: No deficits noted. Tuberculosis screening: No symptoms or risk factors identified. Assessment: 17:49 General: Appears in no apparent distress. Behavior is calm, cooperative. Pain: mb9 Complains of pain in head Pain does not radiate. Quality of pain is described as throbbing. Neuro: Aaron Agitation-Sedation Scale (RASS): 0 - Alert and Calm Level of Consciousness is awake, alert, obeys commands, Oriented to person, place, time, situation, Appropriate for age. Cardiovascular: Patient's skin is warm and dry. Respiratory: Airway is patent Respiratory effort is even, unlabored, Respiratory pattern is regular, symmetrical. GI: No signs and/or symptoms were reported involving the gastrointestinal system. : No signs and/or symptoms were reported regarding the genitourinary system. EENT: Reports swelling in bilateral eyes. Derm: Skin is pink, warm \T\ dry. Musculoskeletal: Range of motion: intact in all extremities. 19:15 Reassessment: No changes from previously documented assessment. Patient and/or family mb9 updated on plan of care and expected duration. Pain level reassessed. Patient is alert, oriented x 3, equal unlabored respirations, skin warm/dry/pink. Vital Signs: 17:33 BP 146 / 75; Pulse 83; Resp 17 S; Temp 97.4(TE); Pulse Ox 100% on R/A; Weight 86.18 kg as6 (R); Height 5 ft. 6 in. (R); Pain 7/10; 19:15 BP 138 / 74; Pulse 81; Resp 16; Pulse Ox 99% on R/A; mb9 17:33 Body Mass Index 30.67 (86.18 kg, 167.64 cm) as6 17:33 Pain Scale: Adult as6 ED Course: 17:25 Patient arrived in ED. ec2 17:25 Markell Manley MD is Attending Physician. ec2 17:33 Arm band placed on. as6 17:36 Triage completed. as6 17:36 Rachael Brooke RN is Primary Nurse. mb9 17:48 Placed in gown. Bed in low position. Call light in reach. Side rails up X 1. Provided mb9 Education on: press call light if needing anything. Door closed. Noise minimized. 17:50 No provider procedures requiring assistance completed. mb9 17:50 Inserted saline lock: 20 gauge in right forearm, using aseptic technique. mb9 19:16 IV discontinued, intact, bleeding controlled, No redness/swelling at site. Pressure mb9 dressing applied. Administered Medications: No medications were administered Medication: 17:49 VIS not applicable for this client. mb9 Outcome: 19:15 Discharge ordered by . ec2 19:16 Discharged to home ambulatory, mb9 19:16 Condition: stable 19:16 Discharge instructions given to patient, Instructed on discharge instructions, follow up and referral plans. Demonstrated understanding of instructions, follow-up care, 19:20 Patient left the ED. mb9 Signatures: Tom Wagoner RN RN as6 Rachael Brooke RN RN mb9 Markell Manley MD MD ec2
--- NOTE | 2023-06-18 19:16 | EDPHYS ---
Physician Documentation [facility] Name: Vijay Mcgregor Age: 28 yrs Sex: Male : 1995 Arrival Date: 06/18/2023 Time: 17:23 Bed 19 Private MD: ED Physician Markell Manley HPI: 06/17 19:15 This 28 yrs old Black Male presents to ER via Ambulatory with complaints of Headache. ec2 19:15 Patient arrives today due to concern for possible HIV exposure. Patient states that he ec2 is not aware of anyone having HIV however recently had intercourse approximate 1.5 weeks ago with a woman and he was concerned he contracted HIV. Woman is not known to have HIV.. Historical: - Allergies: 17:35 No Known Allergies; as6 - PMHx: 17:35 None; as6 - PSHx: 17:35 thumb; as6 - Immunization history:: Adult Immunizations up to date. - Infectious Disease History:: Denies. - Social history:: Smoking status: Patient denies any tobacco usage or history of. ROS: 19:15 Constitutional: as per hpi ec2 Exam: 19:15 Constitutional: GEN: NAD Head: atraumatic Eyes: EOMI Ears: External ears are ec2 normal. CV: regular rate LUNGS: no respiratory distress ABD: non-distended SKIN: no evidence of rashes MSK: no evidence of trauma NEURO: moves all extremities equally, cranial nerves II through XII intact, strength intact all 4 extremities. Vital Signs: 17:33 BP 146 / 75; Pulse 83; Resp 17 S; Temp 97.4(TE); Pulse Ox 100% on R/A; Weight 86.18 kg as6 (R); Height 5 ft. 6 in. (R); Pain 7/10; 19:15 BP 138 / 74; Pulse 81; Resp 16; Pulse Ox 99% on R/A; mb9 17:33 Body Mass Index 30.67 (86.18 kg, 167.64 cm) as6 17:33 Pain Scale: Adult as6 MDM: 17:35 Patient medically screened. ec2 19:15 Data reviewed: vital signs. ED course: Patient arrives today due to concern for ec2 exposure to HIV. Examination remarkable for well-appearing nontoxic dividual is otherwise in no acute distress. Patient exhibits no signs of HIV or general infection. Patient is well-appearing in no acute distress with reassuring vital signs and reassuring lab work. I sent a HIV screening and discussed pre and postexposure prophylaxis for HIV and ultimately instructed him to follow-up with his primary care doctor and give him a list of resources to follow-up with. Patient discharged home. Return precautions given.. 06/17 17:56 Order name: CBC with Diff; Complete Time: 18:52 ec2 06/17 17:56 Order name: CMP; Complete Time: 18:52 ec2 06/17 18:01 Order name: HIV 1 RNA, QL RTPCR EDMS Administered Medications: No medications were administered Disposition Summary: 06/18/23 19:15 Discharge Ordered Notes: Location: Home ec2 Condition: Stable ec2 Diagnosis - Concern for Medical Illness ec2 Followup: ec2 - With: Private Physician - When: - Reason: Re-evaluation by your physician Discharge Instructions: - Discharge Summary Sheet ec2 - Preventing HIV Infection and AIDS ec2 Forms: - Medication Reconciliation Form ec2 - Thank You Letter ec2 - Antibiotic Education ec2 - Prescription Opioid Use ec2 - Patient Portal Instructions ec2 - Leadership Thank You Letter ec2 Signatures: Dispatcher [employer] Tom Issa RN RN as6 Markell Manley MD MD ec2
[2023-06-19 01:05] VITALS: BP 146/75; TEMP 97.4; O2SAT 100
== END 2023-06-18 19:20 | disposition home or self-care (01) ==
LOC: ER 17:23
DX: Z11.4 Encounter for screening for human immunodeficiency virus [HIV] (principal)
CPT/HCPCS: 36415; 80053; 85025; 87535